=== PATIENT | male | born 1980 | race Caucasian/White ===

== ENCOUNTER 2019-10-24 14:18 | Emergency (ER) | END 2019-10-24 15:50 | disposition home or self-care (01) | DX: S16.1XXA Strain of muscle, fascia and tendon at neck level, initial encounter (principal); S39.012A Strain of muscle, fascia and tendon of lower back, initial encounter; S09.90XA Unspecified injury of head, initial encounter; Z72.0 Tobacco use; V43.62XA Car passenger injured in collision with other type car in traffic accident, initial encounter; Y93.89 Activity, other specified; Y92.410 Unspecified street and highway as the place of occurrence of the external cause; Y99.8 Other external cause status ==

== ENCOUNTER 2020-01-29 12:06 | Emergency (ER) | payer MEDICAID, OTHER ==
[~2020-01-29] VITALS: Ht 167.6 cm; Wt 72.6 kg
[2020-01-29] MEDS ORDERED: MAG HYDROX/AL HYDROX/SIMETH 30 ML LIQUID UDC PO ONE (12:30)
[2020-01-29] MEDS ORDERED: LIDOCAINE VISCUS 2% 15 ML UDC MM ONE (12:30)
[2020-01-29] MEDS ORDERED: ASPIRIN 81 MG TAB.CHEW PO ONE (12:30)
--- NOTE | 2020-01-29 12:37 | NUR ---
PT IS IN ROOM #1B. DR ROBBINS EVALUATED THE PT.
[2020-01-29] MEDS ORDERED: ASPIRIN 81 MG TAB.CHEW ONE (12:42)
[2020-01-29] MEDS ORDERED: MAG HYDROX/AL HYDROX/SIMETH 30 ML LIQUID UDC ONE (12:42)
[2020-01-29 12:43] LABS: BASOPHILS % (AUTO) 0.4 % (0.0-2.0); EOSINOPHILS # (AUTO) 0.3 K/uL (0.0-0.7); EOSINOPHILS % (AUTO) 4.4 % (0.0-7.0); HEMATOCRIT 43.2 % (36.7-47.1); HEMOGLOBIN 14.4 g/dL (12.5-16.3); LYMPHOCYTES # (AUTO) 1.9 K/uL (20.0-40.0); LYMPHOCYTES % (AUTO) 29.3 % (20.5-51.5); MEAN CORPUSCULAR HEMOGLOBIN 27.9 uug (23.8-33.4); MEAN CORPUSCULAR HGB CONC 33 g/dL (32.5-36.3); MEAN CORPUSCULAR VOLUME 83.7 fL (73.0-96.2); MONOCYTES # (AUTO) 0.4 K/uL (2.0-10.0); MONOCYTES % (AUTO) 6.8 % (0.0-11.0); NEUTROPHILS # (AUTO) 3.8 K/uL (1.8-8.9); NEUTROPHILS % (AUTO) 59.1 % (38.5-71.5); PLATELET COUNT (AUTO) 174 K/uL (152-348); RED BLOOD CELL COUNT(AUTO) 5.16 MIL/uL (4.06-5.63); WHITE BLOOD COUNT (AUTO) 6.4 K/uL (3.6-10.2)
[2020-01-29] MEDS ORDERED: LIDOCAINE VISCUS 2% 15 ML UDC ONE (12:43)
[2020-01-29 12:51] LABS: CREATININE 1.1 mg/dL (0.6-1.3); POTASSIUM 4.4 mmol/L (3.5-5.1)
[2020-01-29 12:57] LABS: BILIRUBIN,DIRECT 0.1 mg/dL (0.0-0.2); BILIRUBIN,TOTAL 0.3 mg/dL (0.2-1.0); TOTAL PROTEIN, SERUM 7.1 g/dL (6.4-8.2)
--- NOTE | 2020-01-29 13:29 | NUR ---
PT WAS D/C'd TO HOME AFTER DR ROBBINS EVALUATION. D/C INSTRUCTIONS GIVEN TO THE PT BY DR ROBBINS. PT DENIES PAIN. NO S/S OF ACUTE DISTRESS AT THIS TIME.
[2020-01-29 13:31] VITALS: BP 134/71
== END 2020-01-29 13:37 | disposition home or self-care (01) ==
LOC: ER 12:06
DX: R07.89 Other chest pain (principal); K29.70 Gastritis, unspecified, without bleeding; R61 Generalized hyperhidrosis; R06.02 Shortness of breath; Z87.891 Personal history of nicotine dependence
CPT/HCPCS: 36415; 70030-TC; 71045; 85025; 93005; A4663

== ENCOUNTER 2020-05-31 12:14 | Emergency (ER) | payer MEDICAID ==
[~2020-05-31] VITALS: Ht 175.3 cm; Wt 83.9 kg
--- NOTE | 2020-05-31 13:20 | NUR ---
PT IS IN ROOM #1A. DR HI EVALUATED THE PT.
[2020-05-31] MEDS ORDERED: KETOROLAC TROMETHAMINE 30 MG INJ IVP ONE (14:45)
[2020-05-31] MEDS ORDERED: IV NORMAL SALINE 1000 ML BAG IV ONE (14:45)
[2020-05-31] MEDS ORDERED: KETOROLAC TROMETHAMINE 30 MG INJ ONE (14:53)
[2020-05-31 14:59] LABS: BASOPHILS % (AUTO) 0.4 % (0.0-2.0); EOSINOPHILS # (AUTO) 0.4 K/uL (0.0-0.7); EOSINOPHILS % (AUTO) 4.5 % (0.0-7.0); HEMATOCRIT 45.4 % (36.7-47.1); HEMOGLOBIN 15.3 g/dL (12.5-16.3); LYMPHOCYTES # (AUTO) 3.2 K/uL (20.0-40.0); LYMPHOCYTES % (AUTO) 36.9 % (20.5-51.5); MEAN CORPUSCULAR HEMOGLOBIN 28.4 uug (23.8-33.4); MEAN CORPUSCULAR HGB CONC 34 g/dL (32.5-36.3); MEAN CORPUSCULAR VOLUME 84.5 fL (73.0-96.2); MONOCYTES # (AUTO) 0.7 K/uL (2.0-10.0); MONOCYTES % (AUTO) 8.1 % (0.0-11.0); NEUTROPHILS # (AUTO) 4.3 K/uL (1.8-8.9); NEUTROPHILS % (AUTO) 50.1 % (38.5-71.5); PLATELET COUNT (AUTO) 191 K/uL (152-348); RED BLOOD CELL COUNT(AUTO) 5.38 MIL/uL (4.06-5.63); WHITE BLOOD COUNT (AUTO) 8.6 K/uL (3.6-10.2)
[2020-05-31 15:08] LABS: POTASSIUM 4.3 mmol/L (3.5-5.1)
[2020-05-31 15:14] LABS: BILIRUBIN,DIRECT 0.1 mg/dL (0.0-0.2); BILIRUBIN,TOTAL 0.5 mg/dL (0.2-1.0); TOTAL PROTEIN, SERUM 7.2 g/dL (6.4-8.2)
[2020-05-31] MEDS ORDERED: SWABABLE VALVE TRANSFER SET EA MC ONE (15:20)
[2020-05-31] MEDS ORDERED: IV NORMAL SALINE 250 ML IV ONE (15:20)
[2020-05-31] MEDS ORDERED: IOHEXOL 300MG/ML 100 ML INFUS..BTL ONE (15:20)
[2020-05-31 15:39] LABS: THYROID STIMULATING HORMONE 0.911 mIU/mL (0.358-3.740)
[2020-05-31 16:59] VITALS: BP 142/84
--- NOTE | 2020-05-31 16:59 | NUR ---
PT WAS D/C'd TO HOME. D/C INSTRUCTIONS GIVEN TO THE PT BY DR HI.
== END 2020-05-31 17:00 | disposition home or self-care (01) ==
LOC: ER 12:14
DX: R07.0 Pain in throat (principal); R07.2 Precordial pain; Z86.39 Personal history of other endocrine, nutritional and metabolic disease; F17.200 Nicotine dependence, unspecified, uncomplicated
CPT/HCPCS: 36415; 70491; 71046; 80048; 80076; 83690; 83880; 84443; 84484; 85025; 93005; 96361; 96374; 99291; J1885; Q9967; 70030-TC; A4663; J7030; J7050

== ENCOUNTER 2020-10-15 10:00 | Emergency (ER) | payer MEDICAID ==
[~2020-10-15] VITALS: Ht 172.7 cm; Wt 77.1 kg
--- NOTE | 2020-10-15 10:55 | NUR ---
Patient discharged to home in stable condition. Written and verbal after care instructions given. Patient verbalizes understanding of instructions. Stressed follow up or return to ER for worsening s/s.
== END 2020-10-15 10:56 | disposition home or self-care (01) ==
LOC: ER 10:00
DX: R05 Cough (principal); M79.10 Myalgia, unspecified site; R50.9 Fever, unspecified; Z20.828 Contact with and (suspected) exposure to other viral communicable diseases; Z86.39 Personal history of other endocrine, nutritional and metabolic disease; F17.200 Nicotine dependence, unspecified, uncomplicated
CPT/HCPCS: 71045; 99284; U0003; A4663

== ENCOUNTER 2021-01-01 15:26 | Emergency (ER) | payer MEDICAID ==
[~2021-01-01] VITALS: Ht 167.6 cm; Wt 80.3 kg
[2021-01-01 16:12] LABS: BASOPHILS % (AUTO) 0.5 % (0.0-2.0); EOSINOPHILS # (AUTO) 0.3 K/uL (0.0-0.7); EOSINOPHILS % (AUTO) 3.4 % (0.0-7.0); HEMATOCRIT 44.6 % (36.7-47.1); HEMOGLOBIN 14.8 g/dL (12.5-16.3); LYMPHOCYTES % (AUTO) 34.6 % (20.5-51.5); MEAN CORPUSCULAR HGB CONC 33 g/dL (32.5-36.3); MEAN CORPUSCULAR VOLUME 84.3 fL (73.0-96.2); MONOCYTES # (AUTO) 0.6 K/uL (2.0-10.0); MONOCYTES % (AUTO) 7.3 % (0.0-11.0); NEUTROPHILS # (AUTO) 4.7 K/uL (1.8-8.9); NEUTROPHILS % (AUTO) 54.2 % (38.5-71.5); PLATELET COUNT (AUTO) 185 K/uL (152-348); RED BLOOD CELL COUNT(AUTO) 5.29 MIL/uL (4.06-5.63); WHITE BLOOD COUNT (AUTO) 8.7 K/uL (3.6-10.2)
[2021-01-01 16:16] LABS: POTASSIUM 3.9 mmol/L (3.5-5.1)
[2021-01-01] MEDS ORDERED: ALBU8.5H8 INH (16:36)
== END 2021-01-01 16:58 | disposition home or self-care (01) ==
LOC: ER 15:28
DX: J02.8 Acute pharyngitis due to other specified organisms (principal); R07.89 Other chest pain; Z20.822 Contact with and (suspected) exposure to COVID-19; E86.0 Dehydration
CPT/HCPCS: 36415; 70030-TC; 71045; 85025; 86403; 93005; A4663; U0003

== ENCOUNTER 2021-07-23 11:40 | Emergency (ER) | payer MEDICAID ==
[~2021-07-23] VITALS: Ht 172.7 cm; Wt 81.6 kg
[~2021-07-23 11:40] MED LIST: ALBU8.5H8 INH
== END 2021-07-23 12:52 | disposition home or self-care (01) ==
LOC: ER 11:40
DX: J20.9 Acute bronchitis, unspecified (principal); Z20.822 Contact with and (suspected) exposure to COVID-19; F17.200 Nicotine dependence, unspecified, uncomplicated
CPT/HCPCS: A4663

== ENCOUNTER 2022-05-14 13:38 | Emergency (ER) | payer MEDICAID ==
[~2022-05-14] VITALS: Ht 175.3 cm; Wt 82.1 kg
--- NOTE | 2022-05-14 14:10 | NUR ---
SHAY WAS MSE DR DEWEY IN ROOM 05A.
--- NOTE | 2022-05-14 14:44 | NUR ---
PATIENT LEFT THE ER WITH SISTER. SHE WILL COMEBACK FOR X-RAY RESULTS.
--- NOTE | 2022-05-14 14:44 | NUR ---
PER PATIENT HER SISTER TABBY AT BEDSIDE WILL CALL BACK FOR X-RAY RESULTS.
--- NOTE | 2022-05-14 16:02 | NUR ---
TABBY CALLED MADE AWARE OF TEST RESULTS.
== END 2022-05-14 16:20 | disposition home or self-care (01) ==
LOC: ER 13:38
DX: R05.3 Chronic cough (principal); U07.1 COVID-19; F17.210 Nicotine dependence, cigarettes, uncomplicated
CPT/HCPCS: 71045; A4663

== ENCOUNTER 2022-07-07 18:59 | Emergency (ER) | payer MEDICAID ==
[~2022-07-07] VITALS: Ht 172.7 cm; Wt 77.1 kg
--- NOTE | 2022-07-07 19:28 | NUR ---
pt in [facility] 2a pt states he was in a [facility] says he has a difficult time moving the fingers on his right hand c/o neck and back pain. pt speaks [place], there is a student nurse who speaks his language and is speaking to the pt.
--- NOTE | 2022-07-07 19:55 | NUR ---
pt was taken to radiology for xrays.
--- NOTE | 2022-07-07 20:23 | NUR ---
pt returned from radiology.
[2022-07-07] MEDS ORDERED: OXYC-128 PO (21:08)
[2022-07-07 21:23] VITALS: BP 130/80
== END 2022-07-07 21:23 | disposition home or self-care (01) ==
LOC: ER 19:02
DX: S16.1XXA Strain of muscle, fascia and tendon at neck level, initial encounter (principal); S39.012A Strain of muscle, fascia and tendon of lower back, initial encounter; V49.49XA Driver injured in collision with other motor vehicles in traffic accident, initial encounter; Y92.410 Unspecified street and highway as the place of occurrence of the external cause; F17.210 Nicotine dependence, cigarettes, uncomplicated; M79.644 Pain in right finger(s)
CPT/HCPCS: 72050; 72100; 73090; 73130; A4663